=== PATIENT | female | born 1980 | race Caucasian/White ===

== ENCOUNTER 2017-08-18 11:29 | Emergency (ER) | payer OTHER ==
[~2017-08-18] VITALS: Ht 162.6 cm; Wt 92.5 kg
[~2017-08-18 11:29] MED LIST: BENADRYL25 MG PO; LEVSIN-SL0.125 MG SL; MOTRIN800 MG PO; NORCO 5-325 TA1 EACH PO; VICODIN 5-5001 EACH PO; XANAX0.5 MG PO
[2017-08-18] MEDS ORDERED: METHIMAZOLE5 MG PO (11:46)
[2017-08-18] MEDS ORDERED: INDERAL LA60 MG PO (12:07)
== END 2017-08-18 12:34 | disposition home or self-care (01) ==
LOC: ED 11:29
DX: F41.9 Anxiety disorder, unspecified (principal); F17.200 Nicotine dependence, unspecified, uncomplicated; Z91.030 Bee allergy status; Z91.018 Allergy to other foods; Z88.1 Allergy status to other antibiotic agents; Z88.8 Allergy status to other drugs, medicaments and biological substances; Z79.899 Other long term (current) drug therapy
CPT/HCPCS: 99283

== ENCOUNTER 2018-06-16 12:39 | Emergency (ER) | payer OTHER ==
[~2018-06-16] VITALS: Ht 160 cm; Wt 91.6 kg
[~2018-06-16 12:39] MED LIST changes: +INDERAL LA60 MG PO; +METHIMAZOLE5 MG PO
[2018-06-16] MEDS ORDERED: XANAX0.5 MG PO (13:51)
[2018-06-16] MEDS ORDERED: TAPAZOLE5 MG PO (14:03)
--- NOTE | 2018-06-16 23:38 | EKG ---
[facility] [address] [place] [address] Signed Normal sinus rhythm Normal ECG When compared with ECG of 20-MAY-2017 13:48, Vent. rate has decreased BY 50 BPM Confirmed by ALANNAH AKHTAR MD ([id number]) on 06/16/2018 11:38:02 PM Electronically Signed By: ALANNAH AKHTAR MD 06/16/18 [id number] PATIENT NAME: DEANDRERUIZKORIN OQUENDO Electrocardiogram DATE OF : 82 PHYSICIAN: ALANNAH AKHTAR MD REPORT #: [id number] REPORT IS CONFIDENTIAL AND NOT TO BE RELEASED WITHOUT AUTHORIZATION
== END 2018-06-16 14:12 | disposition home or self-care (01) ==
LOC: ED 12:39
DX: R07.9 Chest pain, unspecified (principal); F41.9 Anxiety disorder, unspecified; F17.200 Nicotine dependence, unspecified, uncomplicated; Z88.1 Allergy status to other antibiotic agents; Z88.8 Allergy status to other drugs, medicaments and biological substances; Z91.038 Other insect allergy status; Z91.018 Allergy to other foods; Z79.899 Other long term (current) drug therapy
CPT/HCPCS: 71045; 80053; 84484; 85025; 93005; 93010; 99285-25

== ENCOUNTER 2019-02-06 09:01 | Emergency (ER) | payer OTHER ==
[~2019-02-06] VITALS: Ht 160 cm; Wt 104.3 kg
[~2019-02-06 09:01] MED LIST changes: +ATIVAN2 MG PO; +INDERAL XL80 MG PO; +ONDANSETRON ODT8 MG PO; +TAPAZOLE5 MG PO
--- OUTSIDE RECORDS SUMMARY | 2019-02-06 09:04 | XMS ---
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 Kasey has no Care Guidelines for this patient. Scott VISIT COUNT (12 MO.) 3 [facility] TOTAL 3 NOTE: Visits indicate total known visits. ED/UCC VISIT TRACKING (12 MO.) 02/06/2019 09:01 [facility] [place] TYPE: Emergency COMPLAINT: - POST OP PROBLEM, SWELLING 12/09/2018 16:18 [facility] [place] TYPE: Emergency COMPLAINT: - NAUSEA, VOMITTING, DIZZINESS DIAGNOSES: - Bee allergy status - Other nonmedicinal substance allergy status - Other senior living (current) drug therapy - Allergy status to other antibiotic agents status - Thyrotoxicosis, unspecified without thyrotoxic crisis or storm - Personal history of nicotine dependence - Nausea with vomiting, unspecified - Diarrhea, unspecified 06/16/2018 12:39 [facility] [place] TYPE: Emergency COMPLAINT: - CHEST PAIN DIAGNOSES: - Allergy to other foods - Allergy status to other drugs, medicaments and biological substances status - Other insect allergy status - Allergy status to other antibiotic agents status - Precordial pain - Chest pain, unspecified - Nicotine dependence, unspecified, uncomplicated - Other senior living (current) drug therapy - Anxiety disorder, unspecified INPATIENT VISIT TRACKING (12 MO.) No inpatient visits to display in this time frame [id number]
[2019-02-06] MEDS ORDERED: LEVOTHYROXINE150 MCG PO (09:13)
== END 2019-02-06 12:40 | disposition home or self-care (01) ==
LOC: ED 09:01
DX: E89.820 Postprocedural hematoma of an endocrine system organ or structure following an endocrine system procedure (principal); Z87.891 Personal history of nicotine dependence; Z91.013 Allergy to seafood; Z88.1 Allergy status to other antibiotic agents; Z88.8 Allergy status to other drugs, medicaments and biological substances; Z79.899 Other long term (current) drug therapy
CPT/HCPCS: 70491; 71045; 80053; 82375; 83605; 83735; 84439; 84443; 85025; 96361; 99284-25; J2060; J2543; J7030; J7060; Q9967

== ENCOUNTER 2019-02-11 15:47 | Emergency (ER) | payer OTHER ==
[~2019-02-11] VITALS: Ht 160 cm; Wt 90.7 kg
[~2019-02-11 15:47] MED LIST changes: +LEVOTHYROXINE150 MCG PO
--- OUTSIDE RECORDS SUMMARY | 2019-02-11 15:50 | XMS ---
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 Care History Medical/Surgical 02/07/2019 [facility] - Patient is currently established with [facility]. If patient is seen in the ED during business hours. Please contact CHWs at [facility]. Care Recommendation: This patient has had 5 or more Emergency Department visits in the last 12 months.\T\nbsp; Patient requires education on the scope and purpose of the ED as an acute care provider not a Primary Care Provider and should not be utilized for chronic conditions.\T\nbsp; These are guidelines and the provider should exercise clinical judgment when providing care. E.D. VISIT COUNT (12 MO.) 4 [facility] TOTAL 4 NOTE: Visits indicate total known visits. ED/UCC VISIT TRACKING (12 MO.) 02/11/2019 15:48 [facility] TYPE: Emergency COMPLAINT: - POST OP PROBLEM, SWELLING 02/06/2019 09:01 [facility] TYPE: Emergency COMPLAINT: - POST OP PROBLEM, SWELLING DIAGNOSES: - Postprocedural hematoma of an endocrine system organ or structure following other procedure - Other continuous churn buttermaker (current) drug therapy - Postprocedural hematoma of an endocrine system organ or structure following an endocrine system procedure - Allergy status to other drugs, medicaments and biological substances status - Personal history of nicotine dependence - Allergy status to other antibiotic agents status - Allergy to seafood 12/09/2018 16:18 [facility] TYPE: Emergency COMPLAINT: - NAUSEA, VOMITTING, DIZZINESS DIAGNOSES: - Bee allergy status - Other nonmedicinal substance allergy status - Other fci (current) drug therapy - Allergy status to [...] - Nicotine dependence, unspecified, uncomplicated - Other fci (current) drug therapy - Anxiety disorder, unspecified INPATIENT VISIT TRACKING (12 MO.) No inpatient visits to display in this time frame [id number]
[2019-02-11] MEDS ORDERED: KEFLEX500 MG PO (16:11)
== END 2019-02-11 16:19 | disposition home or self-care (01) ==
LOC: ED 15:47
DX: E89.89 Other postprocedural endocrine and metabolic complications and disorders (principal); F17.200 Nicotine dependence, unspecified, uncomplicated; Z91.030 Bee allergy status; Z88.8 Allergy status to other drugs, medicaments and biological substances; Z88.7 Allergy status to serum and vaccine; Z91.018 Allergy to other foods; Z79.899 Other long term (current) drug therapy
CPT/HCPCS: 99283

== ENCOUNTER 2020-06-05 09:38 | Emergency (ER) | payer OTHER ==
[~2020-06-05] VITALS: Ht 160 cm; Wt 90.7 kg
[~2020-06-05 09:38] MED LIST changes: +KEFLEX500 MG PO
--- OUTSIDE RECORDS SUMMARY | 2020-06-05 09:40 | XMS ---
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 Care History Medical/Surgical 02/07/2019 [facility] - Patient is currently established with [facility]. If patient is seen in the ED during business hours. Please contact CHWs at [facility]. Care Recommendation: This patient has had 5 [...] providing care. E.D. VISIT COUNT (12 MO.) 1 [facility] TOTAL 1 NOTE: Visits indicate total known visits. ED/UCC VISIT TRACKING (12 MO.) 06/05/2020 09:[address] [facility] [place] TYPE: Emergency COMPLAINT: - RIGHT ARM/ELBOW INJURY INPATIENT VISIT TRACKING (12 MO.) No inpatient visits to display in this time frame [id number]
[2020-06-05] MEDS ORDERED: HYDROXYZINE HCL25 MG PO (10:15)
== END 2020-06-05 13:48 | disposition home or self-care (01) ==
LOC: ED 09:38
DX: S50.01XA Contusion of right elbow, initial encounter (principal); W01.0XXA Fall on same level from slipping, tripping and stumbling without subsequent striking against object, initial encounter; F17.200 Nicotine dependence, unspecified, uncomplicated; Z88.8 Allergy status to other drugs, medicaments and biological substances; Z88.1 Allergy status to other antibiotic agents; Z91.030 Bee allergy status; Z79.899 Other long term (current) drug therapy
CPT/HCPCS: 73030; 73080; 96372; 99283-25; J1885

== ENCOUNTER 2022-08-15 08:28 | Emergency (ER) | payer OTHER ==
[~2022-08-15] VITALS: Ht 160 cm; Wt 98.0 kg
[~2022-08-15 08:28] MED LIST changes: +HYDROXYZINE HCL25 MG PO; -LEVOTHYROXINE150 MCG PO; +LEVOTHYROXINE25 MCG PO
[2022-08-15] MEDS ORDERED: BENADRYL ALLERG25 MG PO (08:39)
[2022-08-15] MEDS ORDERED: VENTOLIN HFA18 GM INH (11:20)
[2022-08-15] MEDS ORDERED: PREDNISONE20 MG PO (11:20)
--- NOTE | 2022-08-15 21:27 | EKG ---
[facility] [address] [place] [address] Signed Normal sinus rhythm Normal ECG When compared with ECG of 16-JUN-2018 12:43, No significant change was found Confirmed by Anabella Palencia MD () on 08/15/2022 9:26:53 PM Electronically Signed By: ANABELLA PALENCIA MD 08/15/[id number] PATIENT NAME: RUIZ CARRERA Electrocardiogram DATE OF : 82 PHYSICIAN: ANABELLA PALENCIA MD REPORT #: [id number] REPORT IS CONFIDENTIAL AND NOT TO BE RELEASED WITHOUT AUTHORIZATION
== END 2022-08-15 11:39 | disposition home or self-care (01) ==
LOC: ED 08:28
DX: J45.901 Unspecified asthma with (acute) exacerbation (principal); F17.200 Nicotine dependence, unspecified, uncomplicated; Z88.1 Allergy status to other antibiotic agents; Z91.030 Bee allergy status; Z91.018 Allergy to other foods; Z79.899 Other long term (current) drug therapy
CPT/HCPCS: 36415; 71045; 80053; 84484; 85025; 85379; 93005; 93010; 94640; 94664; 99285-25; J7512

== ENCOUNTER 2024-07-23 12:29 | Emergency (ER) | payer OTHER ==
[~2024-07-23] VITALS: Ht 160 cm; Wt 95.9 kg
[~2024-07-23 12:29] MED LIST changes: +BENADRYL ALLERG25 MG PO; +PREDNISONE20 MG PO; +VENTOLIN HFA18 GM INH
[2024-07-23] MEDS ORDERED: ALBUTEROL/IPRATROPIUM 3 ML NEB INH ONE (13:45)
[2024-07-23] MEDS ORDERED: PREDNISONE20 MG PO (14:22)
[2024-07-23] MEDS ORDERED: AMOXICILLIN500 MG PO (14:22)
[2024-07-23] MEDS ORDERED: ALBUTEROL2.5 MG/3 M INH (14:22)
[2024-07-23] MEDS ORDERED: ALBUTEROL SULFATE 8 GM HOME.PACK INH ONE (14:30)
[2024-07-23] MEDS ORDERED: INHALER, ASSIST DEVICES 1 EACH SPACER MISC ONE (14:30)
[2024-07-23] MEDS ORDERED: ALBUTEROL SULFATE 0.083% 3 ML VIAL INH ONE (14:30)
[2024-07-23] MEDS ORDERED: predniSONE 20 MG TAB PO ONE (14:30)
[2024-07-23] MEDS ORDERED: AMOXICILLIN 500 MG CAP PO ONE (14:30)
[2024-07-23 14:34] VITALS: BP 143/90
== END 2024-07-23 14:48 | disposition home or self-care (01) ==
LOC: ED 12:29
DX: H66.92 Otitis media, unspecified, left ear (principal); J45.909 Unspecified asthma, uncomplicated; F17.200 Nicotine dependence, unspecified, uncomplicated; Z91.030 Bee allergy status; Z91.018 Allergy to other foods; Z88.1 Allergy status to other antibiotic agents
CPT/HCPCS: 71045; 87502; 94640; 94664; 94667; 99284-25; J7512; U0002

== ENCOUNTER 2025-03-22 09:20 | Emergency (ER) | payer OTHER | END 2025-03-22 11:42 | disposition home or self-care (01) | LOC: ED 09:20 | DX: S93.601A Unspecified sprain of right foot, initial encounter (principal); F17.200 Nicotine dependence, unspecified, uncomplicated; Z91.030 Bee allergy status; Z79.899 Other long term (current) drug therapy; W22.8XXA Striking against or struck by other objects, initial encounter ==